=== PATIENT | male | born 1995 | race Caucasian/White ===

== ENCOUNTER 2021-07-14 21:12 | Emergency (ER) | payer OTHER ==
[~2021-07-14 21:12] MED LIST: FLEXERIL 10 MG10 MG PO; HYDROCODON-ACE1 EAC4 PO; IBUPROFEN800 MG PO; KEFLEX CAP 500500 MG PO; PERCOCET 10-321 EACH PO; VITAMIN C 500500 MG PO; VITAMIN D250000 UNIT PO
== END 2021-07-15 01:48 | disposition home or self-care (01) ==
LOC: ER1 21:12
DX: M25.571 Pain in right ankle and joints of right foot (principal); M79.671 Pain in right foot; R20.2 Paresthesia of skin; I10 Essential (primary) hypertension; Z86.73 Personal history of transient ischemic attack (TIA), and cerebral infarction without residual deficits; F17.210 Nicotine dependence, cigarettes, uncomplicated
CPT/HCPCS: 73610; 73630; 99283

== ENCOUNTER 2021-09-20 17:26 | Emergency (ER) | payer OTHER ==
[2021-09-20 18:08] LABS: HEMOGLOBIN 15.2 gm/dl (14.0-17.5); RED BLOOD COUNT 4.85 M/UL (4.20-5.50); WHITE BLOOD COUNT 3.3 K/UL (4.5-11.0)
[2021-09-20 18:48] LABS: BUN/CREATININE RATIO 15 (0-10)
== END 2021-09-20 19:20 | disposition home or self-care (01) ==
LOC: ER1 17:26
PROVIDERS: Physician Assistant
DX: U07.1 COVID-19 (principal); F17.200 Nicotine dependence, unspecified, uncomplicated; I10 Essential (primary) hypertension
CPT/HCPCS: 80053; 81001; 85025; 99283; U0002

== ENCOUNTER 2022-05-05 10:27 | Emergency (ER) | payer OTHER ==
[2022-05-05 13:36] LABS: HEMOGLOBIN 17.3 gm/dl (14.0-17.5); RED BLOOD COUNT 5.69 M/UL (4.20-5.50); WHITE BLOOD COUNT 7.8 K/UL (4.5-11.0)
[2022-05-05 14:06] LABS: BUN/CREATININE RATIO 7 (0-10)
== END 2022-05-05 16:40 | disposition home or self-care (01) ==
LOC: ER1 10:27
PROVIDERS: Family Medicine
DX: I88.0 Nonspecific mesenteric lymphadenitis (principal); F10.10 Alcohol abuse, uncomplicated; F17.200 Nicotine dependence, unspecified, uncomplicated
CPT/HCPCS: 80053; 83690; 85025; 96374; 99284; C9113; Q9967